=== PATIENT | male | born 1975 | race Caucasian/White ===

== ENCOUNTER 2016-12-24 18:04 | Emergency (ER) | payer SELFPAY ==
[~2016-12-24] VITALS: Ht 188 cm; Wt 106.0 kg
[2016-12-24 18:07] VITALS: BP 126/65
== END 2016-12-24 21:20 | disposition left against medical advice (07) ==
LOC: ED 21:14
DX: Z48.01 Encounter for change or removal of surgical wound dressing (principal); Z53.21 Procedure and treatment not carried out due to patient leaving prior to being seen by health care provider

== ENCOUNTER 2016-12-25 02:31 | Emergency (ER) | payer SELFPAY ==
[~2016-12-25] VITALS: Ht 188 cm; Wt 104.7 kg
[2016-12-25 02:32] VITALS: BP 132/81
== END 2016-12-25 04:39 ==
LOC: ED 04:33
DX: M79.601 Pain in right arm (principal)

== ENCOUNTER 2017-02-01 14:44 | Emergency (ER) | payer SELFPAY ==
[~2017-02-01] VITALS: Ht 188 cm; Wt 104.5 kg
[2017-02-01 15:01] VITALS: BP 153/99
== END 2017-02-01 16:21 | disposition home or self-care (01) ==
LOC: ED 15:42
DX: S51.831D Puncture wound without foreign body of right forearm, subsequent encounter (principal); M79.621 Pain in right upper arm
CPT/HCPCS: 99283